=== PATIENT | male | born 1985 ===

== ENCOUNTER 2021-08-09 18:44 | Emergency (ER) | payer OTHER ==
[~2021-08-09] VITALS: Ht 177.8 cm; Wt 81.8 kg
[2021-08-09 18:54] VITALS: TEMP 98
[2021-08-09 19:21] LABS: BASO % 0.5 % (0.0-2.0); EOS # 0.1 K/mm3 (0.0-0.7); EOS % 0.7 % (0.0-4.0); GRAN # 5.2 K/mm3 (1.4-6.5); HEMATOCRIT 43.4 % (42.0-52.0); HEMOGLOBIN 15.3 g/dl (13.5-18.0); LYMPH # 2.2 K/mm3 (1.2-3.4); LYMPH % 26.5 % (20.0-51.0); MEAN CELL VOLUME 82 fl (80.0-100.0); MEAN CORPUSCULAR HEMOGLOBIN 29 pg (27-31); MEAN CORPUSCULAR HGB CONC 35 g/dl (33.0-37.0); MEAN PLATELET VOLUME 9.4 fl (7.4-10.4); MONO # 0.7 K/mm3 (0.1-0.6); MONO % 8.9 % (1.7-9.3); PLATELET COUNT 243 K/mm3 (130-400); RED BLOOD COUNT 5.29 M/mm3 (4.20-5.60); REDCELL DISTRIBUTION WIDTH-CV 12.6 % (11.5-14.5)
[2021-08-09 19:44] LABS: ALANINE AMINOTRANSFERASE 33 U/L (0-55); ALBUMIN 4.8 gm/dL (3.5-5.0); ALKALINE PHOSPHATASE 80 U/L (40-150); ANION GAP 19 mmol/L (7-16); AST,SGOT 26 U/L (5-34); BILIRUBIN,TOTAL 0.5 mg/dL (0.2-1.2); BLOOD UREA NITROGEN 39 mg/dL (9-21); CALCIUM 10.4 mg/dL (8.4-10.2); CARBON DIOXIDE 19 mmol/L (22-29); CHLORIDE 97 mmol/L (98-107); CREATINE KINASE 333 U/L (30-200); CREATININE, serum 2.13 mg/dL (0.72-1.25); GLUCOSE 136 mg/dL (70-99); POTASSIUM 3.5 mmol/L (3.5-4.5); SODIUM 135 mmol/L (136-145); TOTAL PROTEIN 8.5 gm/dL (6.2-8.1)
[2021-08-09 19:45] VITALS: BP 128/83; PULSE 105
[2021-08-09 19:45] LABS: ALCOHOL(ethanol),MEDICAL < 10 mg/dL (0-10)
== END 2021-08-09 20:35 | disposition home or self-care (01) ==
LOC: COL.ER 18:44
PROVIDERS: Physician Assistant
DX: T67.2XXA Heat cramp, initial encounter (principal); N17.9 Acute kidney failure, unspecified
CPT/HCPCS: J2405; J7030

== ENCOUNTER 2021-08-23 08:58 | Emergency (ER) | payer OTHER ==
[~2021-08-23] VITALS: Ht 180.3 cm; Wt 84.1 kg
[2021-08-23 09:19] VITALS: BP 134/83; TEMP 97.5
[2021-08-23] MEDS ORDERED: CEPHALEXIN500 M1 PO (10:20)
[2021-08-23 11:25] VITALS: PULSE 79
== END 2021-08-23 11:28 | disposition home or self-care (01) ==
LOC: COL.ER 08:58
DX: S61.213A Laceration without foreign body of left middle finger without damage to nail, initial encounter (principal); S61.211A Laceration without foreign body of left index finger without damage to nail, initial encounter; F17.210 Nicotine dependence, cigarettes, uncomplicated; W31.2XXA Contact with powered woodworking and forming machines, initial encounter; Y92.59 Other trade areas as the place of occurrence of the external cause; Y99.0 Civilian activity done for income or pay